=== PATIENT | female | born 1960 | race Caucasian/White ===

== ENCOUNTER 2018-11-26 05:34 | Day surgery (SDC) | payer OTHER ==
[2018-11-26] MEDS ORDERED: HYDROMORPHONE INJ 2 MG/ML DISP.SYRIN ONE (06:55)
[2018-11-26] MEDS ORDERED: HYDROMORPHONE 1 MG/1 ML DISP.SYRIN ONE (10:41)
== END 2018-11-26 11:53 | disposition home or self-care (01) ==
LOC: DS 05:34
PROVIDERS: ATTEND Specialist
DX: T84.84XA Pain due to internal orthopedic prosthetic devices, implants and grafts, initial encounter (principal); Y79.3 Surgical instruments, materials and orthopedic devices (including sutures) associated with adverse incidents; K21.9 Gastro-esophageal reflux disease without esophagitis; Z88.5 Allergy status to narcotic agent; I10 Essential (primary) hypertension; Z98.890 Other specified postprocedural states
CPT/HCPCS: 20680; A4217; A6253; J0690; J1100; J1170 ×2; J1885; J2405; J2704; J3490